=== PATIENT | female | born 1995 | race Caucasian/White ===

== ENCOUNTER → 2016-05-22 | Outpatient (CLI) | payer BC | LOC: COL.RAD 14:06 | DX: R10.31 Right lower quadrant pain (principal); N83.292 Other ovarian cyst, left side ==

== ENCOUNTER → 2016-05-31 | Outpatient (CLI) | payer BC | LOC: COL.RAD 13:45 | DX: R10.11 Right upper quadrant pain (principal) ==

== ENCOUNTER → 2017-04-09 | Outpatient (CLI) | payer BC | LOC: COL.RAD 07:27 | DX: N83.8 Other noninflammatory disorders of ovary, fallopian tube and broad ligament (principal) ==

== ENCOUNTER → 2017-04-11 | Outpatient (CLI) | payer BC ==
[~2017-04-11] MED LIST: IBU600 MG PO; PERCOCET 325 MG1 TA2 PO; TRI-PREVIFEM1 TA1 PO; ZOFRAN ODT4 MG PO
== END ==
LOC: COL.RAD 13:30
DX: N83.202 Unspecified ovarian cyst, left side (principal)

== ENCOUNTER 2017-04-12 15:20 | Emergency (ER) | payer BC ==
[~2017-04-12] VITALS: Ht 165.1 cm; Wt 59.1 kg
[2017-04-12 15:31] VITALS: BP 135/86; PULSE 92; TEMP 98.1
[2017-04-12] MEDS ORDERED: TRI-PREVIFEM1 TA1 PO (15:34)
[2017-04-12] MEDS ORDERED: PERCOCET 325 MG1 TA2 PO (16:42)
[2017-04-12] MEDS ORDERED: ZOFRAN ODT4 MG PO (16:42)
== END 2017-04-12 16:56 | disposition home or self-care (01) ==
LOC: COL.ER 15:20
DX: N83.202 Unspecified ovarian cyst, left side (principal)

== ENCOUNTER 2017-04-16 15:58 | Day surgery (SDC) | payer BC ==
[2017-04-16] VITALS (9 sets, daily range): BP systolic 116–143; BP diastolic 57–81; PULSE 66–94; TEMP 97.3–98.6
[~2017-04-16] VITALS: Ht 165.1 cm; Wt 56.8 kg
[~2017-04-16 15:58] MED LIST changes: -IBU600 MG PO
[2017-04-16] MEDS ORDERED: IBU600 MG PO (19:56)
[2017-04-16] MEDS ORDERED: PERCOCET 325 MG1 TA2 PO (19:56)
[2017-04-17] VITALS: BP 120/62; PULSE 84; TEMP 98.5
== END 2017-04-17 00:25 ==
LOC: SDCO 15:58 → OB 15:59 → SDCO 18:00
DX: N83.02 Follicular cyst of left ovary (principal); R10.32 Left lower quadrant pain; Z88.5 Allergy status to narcotic agent; J45.990 Exercise induced bronchospasm
CPT/HCPCS: OP; J0690; J1100; J1170; J1885; J2250; J2405; J2704; J2710; J3010; J7120